=== PATIENT | female | born 1990 | race Caucasian/White ===

== ENCOUNTER 2018-07-30 17:23 | Emergency (ER) | payer SELFPAY ==
[~2018-07-30] VITALS: Ht 165.1 cm; Wt 64.0 kg
[2018-07-30] MEDS ORDERED: IBUPROFEN 600MG TABLET PO ONE (22:00)
[2018-07-30] MEDS ORDERED: SILVER SULFADIAZINE 1% CREAM 50GM TOP SCH (22:00)
[2018-07-30 23:08] VITALS: BP 114/78
== END 2018-07-30 23:08 | disposition home or self-care (01) ==
LOC: ER 18:41
DX: T22.112A Burn of first degree of left forearm, initial encounter (principal); X12.XXXA Contact with other hot fluids, initial encounter; Y93.89 Activity, other specified; Y92.010 Kitchen of single-family (private) house as the place of occurrence of the external cause
CPT/HCPCS: 16020; 99284; Z7610